=== PATIENT | female | born 1975 | race Caucasian/White ===

== ENCOUNTER 2018-08-24 12:48 | Emergency (ER) | payer BC ==
[~2018-08-24] VITALS: Ht 165.1 cm; Wt 159.1 kg
[2018-08-24 12:54] VITALS: BP 163/105; Ht 165.1 cm; Wt 159.1 kg
[2018-08-24] MEDS ORDERED: COZAAR50 MG PO (12:56)
[2018-08-24] MEDS ORDERED: ZYLOPRIM100 MG PO (12:56)
[2018-08-24] MEDS ORDERED: BACLOFEN20 M1 PO (12:57)
[2018-08-24 15:05] LABS: ALBUMIN 3.6 g/dL (3.4-5.0); ALKALINE PHOSPHATASE 127 U/L (46-116); ALT (SGPT) 27 U/L (10-68); CALC OSMOLALITY 281 mosm/kg (275-300); CALCIUM 8.7 mg/dL (8.5-10.1); CARBON DIOXIDE 27.3 mmol/L (21.0-32.0); CHLORIDE - SERUM 104 mmol/L (98-107); CREATININE - SERUM 0.8 mg/dL (0.6-1.3); GLUCOSE 113 mg/dL (74-106); POTASSIUM - SERUM 3.5 mmol/L (3.5-5.1); PROTEIN - SERUM 7.2 g/dL (6.4-8.2); SODIUM 141 mmol/L (136-145); UREA NITROGEN 12 mg/dL (7-18); eGFR NON AFRICAN AMERICAN 84 mL/min (90-120)
[2018-08-24 15:09] LABS: BASOPHILS 0.4 % (0-2); HEMATOCRIT 39.4 % (36.0-48.0); HEMOGLOBIN 13.6 g/dL (12-16); IMMATURE GRANULOCYTES 0.4 % (0-5); LYMPHOCYTES 21.8 % (15-50); MCH 27.3 pg (26.0-34.0); MCHC 34.5 g/dL (31.0-37.0); MEAN PLATELET VOLUME 11.8 fL (7.4-10.4); MONOCYTES 4.6 % (2-11); NEUTROPHILS 67.8 % (40-80); PLATELET COUNT 214 10x3/uL (130-400); RBC 4.99 10x6/uL (4.00-5.40); RDW 15.8 % (11.5-14.5); WBC 10.9 10x3/uL (4.8-10.8)
[2018-08-24 15:10] LABS: TROPONIN-I < 0.017 ng/mL (0.000-0.060)
[2018-08-24] MEDS ORDERED: NORVASC5 MG PO (15:31)
== END 2018-08-24 16:45 | disposition home or self-care (01) ==
LOC: D.ER 12:48
PROVIDERS: Family Medicine
DX: I10 Essential (primary) hypertension (principal); R07.9 Chest pain, unspecified; E66.01 Morbid (severe) obesity due to excess calories; R06.09 Other forms of dyspnea

== ENCOUNTER → 2020-08-07 15:31 | Outpatient (CLI) | payer BC ==
[2018-08-24 12:54] VITALS: BMI 58.3
[~2020-08-07 15:31] MED LIST: BACLOFEN20 M1 PO; COZAAR50 MG PO; NORVASC5 MG PO; ZYLOPRIM100 MG PO
== END | disposition home or self-care (01) ==
LOC: D.LAB 15:31
PROVIDERS: ATTEND Family Medicine
DX: R19.7 Diarrhea, unspecified (principal)